=== PATIENT | male | born 1965 | race Caucasian/White ===

== ENCOUNTER 2017-08-30 06:40 | Emergency (ER) | payer BC ==
[~2017-08-30] VITALS: Ht 167.6 cm; Wt 72.6 kg
[~2017-08-30 06:40] MED LIST: HYDR-3326 PO; MERC50TA PO
[2017-08-30] MEDS ORDERED: FLUORESCEIN SODIUM 1 MG STRIP ONE (07:12)
[2017-08-30] MEDS ORDERED: TETRACAINE HCL 0.5% OPHT DROP 2 ML BOTTLE ONE (07:13)
[2017-08-30] MEDS ORDERED: TETRACAINE HCL 0.5% OPHT DROP 2 ML BOTTLE OP ONE (07:15)
--- NOTE | 2017-08-30 07:24 | NUR ---
PT IS IN ROOM #1B. DR BOYD EVALUATED THE PT.
--- NOTE | 2017-08-30 08:09 | NUR ---
PT WAS D/C TO HOME. D/C INSTRUCTIONS GIVEN TO THE PT.
[2017-08-30 08:12] VITALS: BP 139/78
== END 2017-08-30 08:13 | disposition home or self-care (01) ==
LOC: ER 06:50
DX: H20.00 Unspecified acute and subacute iridocyclitis (principal); F17.210 Nicotine dependence, cigarettes, uncomplicated; Z88.6 Allergy status to analgesic agent; Z79.891 Long term (current) use of opiate analgesic; Z79.899 Other long term (current) drug therapy
CPT/HCPCS: 99283; A4663